=== PATIENT | male | born 1940 | race African-American/Black ===

== ENCOUNTER 2018-11-10 18:34 | Emergency (ER) | payer OTHER ==
[~2018-11-10] VITALS: Ht 167.6 cm; Wt 86.2 kg
[~2018-11-10 18:34] MED LIST: ASPIRIN325 PO; HYDROCHLOROTH12.5 MG PO; MECLIZINE HCL25 M1 PO; MULTIVITAMINS1 EAC7 PO; RED YEAST RICE600 MG PO
[2018-11-10] MEDS ORDERED: NORVASC5 MG PO (18:50)
[2018-11-10] MEDS ORDERED: BACTRIM DS TAB1 EACH PO (18:51)
[2018-11-10 18:55] LABS: URINE BILIRUBIN 2+ (Negative); URINE BLOOD 3+ (Negative); URINE CLARITY TURBID; URINE COLOR RED; URINE GLUCOSE-RANDOM* 2+ (Negative); URINE KETONES 2+ (Negative); URINE PROTEIN (DIPSTICK) 3+ (Negative); URINE UROBILINOGEN >= 8.0 E.U./dl (0.2-1.0)
[2018-11-10 18:59] LABS: URINE LEUKOCYTES-REFLEX 3+ (Negative); URINE NITRITE-REFLEX POSITIVE (Negative)
[2018-11-10 19:04] LABS: ICTOTEST (BILI CONFIRMATORY) Positive (Negative)
[2018-11-10 19:06] LABS: BACTERIA-REFLEX 1-9 Few /HPF (None Seen); CASTS None Seen /LPF (None Seen); CRYSTALS None Seen /LPF (None Seen); SQUAMOUS None Seen /LPF (0-3)
[2018-11-10 19:11] LABS: HEMOGLOBIN 14.7 gm/dL (14.0-18.0); MCH 31.6 pg (26.0-34.0); MCHC 34.2 g/dL (28.0-37.0); MCV 92.4 fL (80.0-100.0); PLATELET COUNT 288 thou/uL (150-400); RBC 4.65 mil/uL (4.50-6.00); RDW 13.3 % (10.5-14.5); WBC 21.5 thou/uL (4.0-11.0)
[2018-11-10 19:20] LABS: CALCIUM 8.8 mg/dL (8.5-10.1); CREATININE 0.9 mg/dL (0.7-1.3); POTASSIUM 3.2 mmol/L (3.5-5.1)
[2018-11-10 19:39] LABS: ABSOLUTE NEUTROPHILS 16.8 thou/uL (1.4-8.2); PLATELET ESTIMATE NORMAL
[2018-11-10] MEDS ORDERED: KEFLEX500 M1 PO (21:18)
[2018-11-10 21:28] VITALS: BP 171/80
[2018-11-11] MEDS ORDERED: LEVSIN-SL0.125 MG SUBLING (09:18)
== END 2018-11-10 21:29 | disposition home or self-care (01) ==
LOC: ER 18:34
PROVIDERS: Emergency Medicine
DX: N39.0 Urinary tract infection, site not specified (principal); A41.9 Sepsis, unspecified organism; R31.9 Hematuria, unspecified

== ENCOUNTER 2018-11-16 14:52 | Emergency (ER) | payer OTHER ==
[~2018-11-16] VITALS: Ht 167.6 cm; Wt 86.2 kg
[~2018-11-16 14:52] MED LIST changes: +BACTRIM DS TAB1 EACH PO; +KEFLEX500 M1 PO; +LEVSIN-SL0.125 MG SUBLING; +NORVASC5 MG PO
[2018-11-16 15:12] LABS: URINE BILIRUBIN NEGATIVE (Negative); URINE BLOOD 3+ (Negative); URINE CLARITY CLEAR; URINE GLUCOSE-RANDOM* NEGATIVE (Negative); URINE KETONES NEGATIVE (Negative); URINE NITRITE-REFLEX NEGATIVE (Negative); URINE PROTEIN (DIPSTICK) NEGATIVE (Negative); URINE SPECIFIC GRAVITY <= 1.005 (1.005-1.035); URINE UROBILINOGEN 0.2 E.U./dl (0.2-1.0)
[2018-11-16 15:13] LABS: URINE COLOR PINK; URINE LEUKOCYTES-REFLEX TRACE (Negative)
[2018-11-16 15:23] LABS: BACTERIA-REFLEX None Seen /HPF (None Seen); CASTS None Seen /LPF (None Seen); CRYSTALS None Seen /LPF (None Seen); MUCUS 0-3 Light strn/LPF (None Seen); SQUAMOUS None Seen /LPF (0-3); URINE RBC >20 Many /HPF (0-2); URINE WBC-REFLEX 0-5 Rare /HPF (0-5)
[2018-11-16] MEDS ORDERED: ASPIR 8181 M1 PO (15:28)
[2018-11-16 17:03] LABS: HEMATOCRIT 41.6 % (42.0-52.0); HEMOGLOBIN 14.5 gm/dL (14.0-18.0); MCH 32.1 pg (26.0-34.0); MCHC 34.8 g/dL (28.0-37.0); MCV 92.3 fL (80.0-100.0); RBC 4.5 mil/uL (4.50-6.00); RDW 13.4 % (10.5-14.5); WBC 9.9 thou/uL (4.0-11.0)
[2018-11-16 17:27] LABS: CALCIUM 9.6 mg/dL (8.5-10.1); CREATININE 0.7 mg/dL (0.7-1.3); POTASSIUM 3.5 mmol/L (3.5-5.1)
[2018-11-16 17:36] VITALS: BP 156/78
== END 2018-11-16 17:45 | disposition home or self-care (01) ==
LOC: ER 14:52
PROVIDERS: Physician Assistant
DX: R31.9 Hematuria, unspecified (principal); Z96.0 Presence of urogenital implants; I10 Essential (primary) hypertension